=== PATIENT | male | born 1955 | race Two or more races ===

== ENCOUNTER 2022-09-08 08:36 | Inpatient (IN) | payer MEDICARE ==
[~2022-09-08] VITALS: Ht 175.3 cm; Wt 88.0 kg
[2022-09-08] MEDS ORDERED: normal saline 1000ML IV soln IVB ONE (09:15)
[2022-09-08] MEDS ORDERED: iohexol 300mg/ml 100ml inj. ONE (09:20)
[2022-09-08 09:45] LABS: BASOPHILS % (AUTO) 0.5 % (0-1); EOSINOPHILS # (AUTO) 0.1 X10'3 (0-0.9); EOSINOPHILS % (AUTO) 1.8 % (0-6); HEMOGLOBIN 11.7 g/dl (14.0-17.9); LYMPHOCYTES # (AUTO) 1.4 X10'3 (1.1-4.8); LYMPHOCYTES % (AUTO) 17.3 % (21-51); MEAN CORPUSCULAR HEMOGLOBIN 31.1 PG (27.0-31.0); MEAN CORPUSCULAR HGB CONC 33.3 g/dL (33.0-36.5); MEAN CORPUSCULAR VOLUME 93.4 FL (78-98); MEAN PLATELET VOLUME 8.2 FL (7.4-10.4); MONOCYTES # (AUTO) 0.4 X10'3 (0-0.9); MONOCYTES % (AUTO) 4.9 % (2-12); NEUTROPHILS # (AUTO) 6.1 X10'3 (1.8-7.7); NEUTROPHILS % (AUTO) 75.5 % (42-75); PLATELET COUNT 257 X10'3 (140-440); RED BLOOD COUNT 3.75 X10'6 (4.70-6.10); RED CELL DISTRIBUTION WIDTH 13.1 % (11.5-14.5); WHITE BLOOD COUNT 8.1 X10'3 (4.5-11.0)
[2022-09-08 09:46] LABS: ALANINE AMINOTRANSFERASE 26 U/L (12-78); ALBUMIN 3.6 G/DL (3.4-5.0); ALBUMIN/GLOBULIN RATIO 1.2 (1.1-1.5); ANION GAP 12 (8-16); ASPARTATE AMINO TRANSFERASE 21 U/L (10-37); BILIRUBIN,TOTAL 0.4 MG/DL (0.1-1.0); BLOOD UREA NITROGEN 24 MG/DL (7-18); BUN/CREATININE RATIO 23.8 (10.0-20.0); CALCIUM 8.6 MG/DL (8.5-10.1); CHLORIDE 102 MMOL/L (99-107); CREATININE 1.01 MG/DL (0.60-1.10); GLUCOSE 205 MG/DL (70-104); SODIUM 137 MMOL/L (135-145); TOTAL CARBON DIOXIDE 22.8 MMOL/L (24-32); TOTAL PROTEIN 6.7 G/DL (6.4-8.2); eGFR 73 ML/MIN
[2022-09-08 09:47] LABS: ALKALINE PHOSPHATASE 53 IU/L (46-116); LIPASE 138 U/L (73-393)
[2022-09-08 11:47] LABS: COLOR,URINE YELLOW (Yellow); GLUCOSE, URINE NEGATIVE (Neg); KETONES,URINE 15 mg/dl (Neg); LEUKOCYTE ESTERASE ,URINE SMALL (Neg); NITRITES, URINE POSITIVE (Neg); OCCULT BLOOD,URINE NEGATIVE (Neg); PROTEIN,URINE NEGATIVE (Neg); UROBILINOGEN,URINE 0.2 E.U/dL (0.2-1.0)
[2022-09-08 11:49] LABS: CLARITY,URINE SLIGHTLY CLOUDY (Clear); UA COLLECTION TYPE CLN CATCH MIDSTREAM
[2022-09-08 12:05] LABS: MUCUS STRANDS FEW /LPF (Neg); SQUAMOUS EPITHELIAL CELL,UR NONE SEEN /LPF (FEW)
[2022-09-08 12:06] LABS: BACTERIA,URINE 2+ /HPF (Neg); RBC,URINE NONE SEEN /HPF (0-2)
[2022-09-08] MEDS ORDERED: CefTRIAXone 2gm/D5W 50ml BAG 50 ML IV ONE (12:15)
--- NOTE | 2022-09-08 12:48 | NUR ---
PT HAS CONCERNS ABOUT IV ABX USE - HOSPITALIST AT BEDSIDE FOR ADMISSION EXAM - ADVISED HER TO PLEASE LET ME KNOW ABOUT ABX AFTER SHE TALKS WITH PATIENT.
[2022-09-08] MEDS ORDERED: potassium Cl 40MEQ/1/2NS 520ml 520 ML IV PRN (13:10)
[2022-09-08] MEDS ORDERED: PEG 3350/Na sulf,bicarb,Cl/KCl oral sol 4 liter bottle PO ONE (13:10)
[2022-09-08] MEDS ORDERED: magnesium 2GM in 50ml NS 50 ML IV PRN (13:10)
[2022-09-08] MEDS ORDERED: magnesium 4gm in 100ml NS 100 ML IV PRN (13:10)
[2022-09-08] MEDS ORDERED: ondansetron/PF 4mg/2ml inj IV PRN (13:10)
[2022-09-08] MEDS ORDERED: potassium Cl 20 mEq SR tablet PO PRN ×2 (13:10)
[2022-09-08] MEDS ORDERED: acetaminophen 325mg tablet PO PRN ×2 (13:10)
[2022-09-08] MEDS ORDERED: magnesium Cl slow-release 64mg tablet PO PRN (13:10)
[2022-09-08] MEDS ORDERED: LORazepam 1 MG tablet PO PRN (13:15)
[2022-09-08] MEDS ORDERED: LORazepam 2 mg/ml vial IV PRN (13:15)
[2022-09-08] MEDS: normal saline 1000ml 1,000 ML IV SCH (13:41)
[2022-09-08] MEDS ORDERED: NO HOME MEDS (14:01)
[2022-09-08 14:18] LABS: APTT 27 SECONDS (22-32)
--- NOTE | 2022-09-08 15:50 | NUR ---
Patient in room ED 13. I have received report from Carolynn and had the opportunity to ask questions and assume patient care.
--- NOTE | 2022-09-08 15:59 | NUR ---
Paged Dr. Ramsay. Heydi STEEN RE: Luis Alfredo Souaz. Can we get a clear liquid diet for this patient? GI lab said the colonoscopy is scheduled for tomorrow at 2 pm.
[2022-09-08] MEDS: pantoprazole 40MG/NS 100ML BAG 100 ML IV SCH ×2 (16:00→19:52)
--- NOTE | 2022-09-08 16:02 | NUR ---
Late enty: Patient had refused the Rocephin and Protonix drip ordered upon discussing with him needing antibiotic for UTI and protonix to protect his stomach since he has been having bloody stool
[2022-09-08 16:30] VITALS: BP 142/79
--- NOTE | 2022-09-08 18:31 | NUR ---
Problems reprioritized. Patient report given, questions answered & plan of care reviewed with Gloria Awad
[2022-09-08] MEDS: thiamine 100mg/ml 2ml inj. IV SCH (19:53)
--- NOTE | 2022-09-08 20:09 | NUR ---
notified MD that patient refusing Protoix and Thiamine. Agrees to take golytely prior to colonoscopy tomorrow.
[2022-09-08 22:00] VITALS: BP 135/68
[2022-09-09] VITALS (11 sets, daily range): BP systolic 92–141; BP diastolic 47–73
[2022-09-09] MEDS: pantoprazole 40MG/NS 100ML BAG 100 ML IV SCH ×3 (00:21→08:47)
[2022-09-09] MEDS: normal saline 1000ml 1,000 ML IV SCH ×4 (00:21→20:33)
--- NOTE | 2022-09-09 05:07 | NUR ---
patient informed me that he has had 1/2 of the golytely and states that his BM is clear, although looking in the toilet, it is dark red and not clear. Educated patient to try to finish the golytely, but he is convinced that there is no stool coming out.
--- NOTE | 2022-09-09 05:43 | NUR ---
patient requesting to increase rate of IVF. I told him that I cannot give him more than what is ordered. He states that he feels he has lost a lot of blood and needs more fluids. Educated him that the boat detailer is on the floor and will be drawing his blood to see if he may need a blood transfusion and also to not walk to the bathroom by himself if he is feeling lightheaded. Spoke to boat detailer to have him draw patient next in order to help the patient to feel as if he is not being ignored.
[2022-09-09 06:32] LABS: BASOPHILS % (AUTO) 0.4 % (0-1); EOSINOPHILS # (AUTO) 0.1 X10'3 (0-0.9); EOSINOPHILS % (AUTO) 1.8 % (0-6); HEMATOCRIT 24.3 % (42.0-52.0); HEMOGLOBIN 8.3 g/dl (14.0-17.9); LYMPHOCYTES # (AUTO) 1.1 X10'3 (1.1-4.8); LYMPHOCYTES % (AUTO) 18.6 % (21-51); MEAN CORPUSCULAR HEMOGLOBIN 31.9 PG (27.0-31.0); MEAN CORPUSCULAR VOLUME 93.9 FL (78-98); MONOCYTES # (AUTO) 0.4 X10'3 (0-0.9); MONOCYTES % (AUTO) 6.2 % (2-12); NEUTROPHILS # (AUTO) 4.5 X10'3 (1.8-7.7); PLATELET COUNT 187 X10'3 (140-440); RED BLOOD COUNT 2.59 X10'6 (4.70-6.10); RED CELL DISTRIBUTION WIDTH 13.1 % (11.5-14.5); WHITE BLOOD COUNT 6.1 X10'3 (4.5-11.0)
--- NOTE | 2022-09-09 06:34 | NUR ---
Problems reprioritized. Patient report given, questions answered & plan of care reviewed with CELSA Granger.
--- NOTE | 2022-09-09 06:37 | NUR ---
Patient in room ORTHO 4018. I have received report from Gloria Awad and had the opportunity to ask questions and assume patient care.
[2022-09-09 06:56] LABS: ALANINE AMINOTRANSFERASE 20 U/L (12-78); ALBUMIN 2.9 G/DL (3.4-5.0); ALBUMIN/GLOBULIN RATIO 1.2 (1.1-1.5); ALKALINE PHOSPHATASE 42 IU/L (46-116); ANION GAP 9 (8-16); ASPARTATE AMINO TRANSFERASE 21 U/L (10-37); BILIRUBIN,TOTAL 0.5 MG/DL (0.1-1.0); BLOOD UREA NITROGEN 15 MG/DL (7-18); BUN/CREATININE RATIO 17.4 (10.0-20.0); CALCIUM 8.2 MG/DL (8.5-10.1); CHLORIDE 107 MMOL/L (99-107); CREATININE 0.86 MG/DL (0.60-1.10); GLUCOSE 131 MG/DL (70-104); LIPASE 106 U/L (73-393); POTASSIUM 4.1 MMOL/L (3.5-5.1); SODIUM 140 MMOL/L (135-145); TOTAL CARBON DIOXIDE 24.1 MMOL/L (24-32); TOTAL PROTEIN 5.4 G/DL (6.4-8.2); eGFR 88 ML/MIN
--- NOTE | 2022-09-09 07:15 | NUR ---
Patient is refusing protonix, he will only accept an increase in NS. Advised patient this is an order and cannot just be increased per patient request. Patient is still having blood in the toilet but no stool. Patient stated he doesn't want to drink more of the bowel prep since there isn't any more stool. Reiterated to the patient that the bowel contents need to be clear for the procedure. He still declines. Patient stated he now feels more weakness and dizziness. Provided BSC, printed education material for the protonix and paged the hospitalist.
--- NOTE | 2022-09-09 07:26 | NUR ---
GI lab called regarding prep and how patients stool is looking. I went in room, colonoscopy prep is about gone, and patient stool in toilet is maxwell red with flakes in it. He stated he was dizzy and I offered to get a commode, he stated "no I will be fine", commode placed in room.
--- NOTE | 2022-09-09 07:34 | NUR ---
Re: Libby, 4018, pt refusing protonix, blood in toilet, no stool, only wants increased NS, dizziness present, provided protonix edu, just castro Granger
[2022-09-09] MEDS: folic acid 1mg/0.2ml inj IV SCH (08:00)
[2022-09-09] MEDS: thiamine 100mg/ml 2ml inj. IV SCH ×3 (08:00→20:32)
[2022-09-09] MEDS ORDERED: LIDOcaine Viscous 15ml cup ONE (08:55)
[2022-09-09] MEDS ORDERED: fentaNYL/PF 50MCG/1 ML 2ML syringe ONE (08:55)
[2022-09-09] MEDS ORDERED: MIDAZolam 1 MG/ML 5ML VIAL ONE (08:55)
--- NOTE | 2022-09-09 09:07 | NUR ---
Ada STEEN from GI at 0800 inquiring about patient golytely status, told her he was done. She then called back at 0830 to inform me they will be getting the patient earlier than 1400. I then told her I had just flushed a maxwell blood with clots stool from the commode, and told her it may be in there best interest to do the colonoscopy sooner than later. Also spoke with the son and informed him on what is the plan. I had a lengthy talk with patient regarding protonix gtt and the benefits, he then agreed to take it.
--- NOTE | 2022-09-09 09:19 | NUR ---
Juliana STEEN here to waste picker patient, patient would like code status changed. Addendum: 09/09/22 at 0940 by Hannah Cotto RN Dr. Ramsay came up and spoke with patient regarding Code status.
--- NOTE | 2022-09-09 09:21 | NUR ---
PAGER ID: [phone] MESSAGE: [phone] Libby Altman Can you call me? Hannah. We need a code status change and would really like to get a blood consent for the patient. [id number] THANK YOU
--- NOTE | 2022-09-09 11:37 | NUR ---
Re: Libby in 4017, pt is back from GI, report copy in agustin Granger
--- NOTE | 2022-09-09 11:53 | NUR ---
RE: 4404 Libby, patient asking to eat, please advise Thank you Bárbara
--- NOTE | 2022-09-09 13:25 | NUR ---
Patient refused to continue to protonix drip.
[2022-09-09 14:48] LABS: BASOPHILS % (AUTO) 0.1 % (0-1); EOSINOPHILS % (AUTO) 0 % (0-6); LYMPHOCYTES # (AUTO) 0.7 X10'3 (1.1-4.8); LYMPHOCYTES % (AUTO) 6.3 % (21-51); MEAN CORPUSCULAR HEMOGLOBIN 31.2 PG (27.0-31.0); MEAN CORPUSCULAR HGB CONC 33.6 g/dL (33.0-36.5); MEAN PLATELET VOLUME 7.7 FL (7.4-10.4); MONOCYTES # (AUTO) 0.4 X10'3 (0-0.9); MONOCYTES % (AUTO) 3.7 % (2-12); NEUTROPHILS % (AUTO) 89.9 % (42-75); PLATELET COUNT 183 X10'3 (140-440); RED BLOOD COUNT 2.11 X10'6 (4.70-6.10); RED CELL DISTRIBUTION WIDTH 12.8 % (11.5-14.5); WHITE BLOOD COUNT 11.1 X10'3 (4.5-11.0)
[2022-09-09 14:57] LABS: HEMATOCRIT 19.6 % (42.0-52.0); HEMOGLOBIN 6.6 g/dl (14.0-17.9)
--- NOTE | 2022-09-09 15:06 | NUR ---
RE: 4018 Libby, H&H 6.6 and 19.6, pt does not want transfusion at this time, still refusing protonix, he's asking to increase rate of NS Bárbara
--- NOTE | 2022-09-09 15:43 | NUR ---
Patient did decline the blood transfusion in the presence of this conventional underwriter and the hospitalist. The patient did write down his reasons for declining on a sheet of paper which was placed in his chart. Patient requested to have a friend donate blood (same blood type) and provide that should he opt to have a transfusion. Hospitalist made aware.
[2022-09-09] MEDS ORDERED: polyethylene glycol 3350 17gm powd pack PO PRN (17:05)
--- NOTE | 2022-09-09 18:19 | NUR ---
Problems reprioritized. Patient report given, questions answered & plan of care reviewed with Gloria Awda
[2022-09-09] MEDS: pantoprazole 40mg Tablet.DR PO SCH (20:00)
[2022-09-09] MEDS: ferrous sulfate 325mg tablet PO SCH (20:26)
[2022-09-10 02:00] VITALS: BP 111/45
[2022-09-10] MEDS: normal saline 1000ml 1,000 ML IV SCH ×2 (05:19→22:23)
[2022-09-10 06:00] VITALS: BP 115/58
[2022-09-10 06:40] LABS: BASOPHILS % (AUTO) 0.2 % (0-1); EOSINOPHILS % (AUTO) 0.4 % (0-6); LYMPHOCYTES # (AUTO) 1.7 X10'3 (1.1-4.8); LYMPHOCYTES % (AUTO) 17.1 % (21-51); MEAN CORPUSCULAR HEMOGLOBIN 32.4 PG (27.0-31.0); MEAN CORPUSCULAR HGB CONC 34.6 g/dL (33.0-36.5); MEAN CORPUSCULAR VOLUME 93.8 FL (78-98); MEAN PLATELET VOLUME 8.4 FL (7.4-10.4); MONOCYTES # (AUTO) 0.8 X10'3 (0-0.9); MONOCYTES % (AUTO) 8.4 % (2-12); NEUTROPHILS # (AUTO) 7.4 X10'3 (1.8-7.7); NEUTROPHILS % (AUTO) 73.9 % (42-75); PLATELET COUNT 162 X10'3 (140-440); RED BLOOD COUNT 1.71 X10'6 (4.70-6.10)
[2022-09-10 06:41] LABS: ALANINE AMINOTRANSFERASE 17 U/L (12-78); ALBUMIN 2.4 G/DL (3.4-5.0); ALBUMIN/GLOBULIN RATIO 1.1 (1.1-1.5); ALKALINE PHOSPHATASE 35 IU/L (46-116); ANION GAP 6 (8-16); ASPARTATE AMINO TRANSFERASE 21 U/L (10-37); BILIRUBIN,TOTAL 0.2 MG/DL (0.1-1.0); BLOOD UREA NITROGEN 12 MG/DL (7-18); CALCIUM 8.1 MG/DL (8.5-10.1); CHLORIDE 110 MMOL/L (99-107); CREATININE 0.86 MG/DL (0.60-1.10); GLUCOSE 121 MG/DL (70-104); POTASSIUM 4.5 MMOL/L (3.5-5.1); SODIUM 142 MMOL/L (135-145); TOTAL CARBON DIOXIDE 25.7 MMOL/L (24-32); TOTAL PROTEIN 4.5 G/DL (6.4-8.2); eGFR 88 ML/MIN
[2022-09-10 06:55] LABS: HEMOGLOBIN 5.5 g/dl (14.0-17.9)
--- NOTE | 2022-09-10 07:07 | NUR ---
PAGER ID: [phone] MESSAGE: [phone] Arria form needs filled out for [employer]ant jackie. H&H .09/25 5224 BARBARA
--- NOTE | 2022-09-10 07:29 | NUR ---
PAGER ID: [phone] MESSAGE: [phone] Rodriguezia STAT need signature on form for [employer] for Blood. Needs faxed yesterday. Critical H&H 5.09/25
[2022-09-10] MEDS: pantoprazole 40mg Tablet.DR PO SCH ×2 (08:00→22:07)
[2022-09-10] MEDS: thiamine 100mg/ml 2ml inj. IV SCH ×3 (08:00→22:07)
[2022-09-10] MEDS: folic acid 1mg/0.2ml inj IV SCH (08:00)
--- NOTE | 2022-09-10 08:03 | NUR ---
Call from Dr Perla, she will come and see patient and sign form for [employer] special collection request.
[2022-09-10 10:00] VITALS: BP 116/46
[2022-09-10 12:25] LABS: MEAN CORPUSCULAR HEMOGLOBIN 31.7 PG (27.0-31.0); MEAN CORPUSCULAR HGB CONC 33.9 g/dL (33.0-36.5); MEAN CORPUSCULAR VOLUME 93.4 FL (78-98); MEAN PLATELET VOLUME 7.7 FL (7.4-10.4); PLATELET COUNT 182 X10'3 (140-440); RED CELL DISTRIBUTION WIDTH 12.9 % (11.5-14.5); WHITE BLOOD COUNT 9.4 X10'3 (4.5-11.0)
[2022-09-10 12:27] LABS: HEMATOCRIT 16.8 % (42.0-52.0); HEMOGLOBIN 5.7 g/dl (14.0-17.9)
[2022-09-10 14:00] VITALS: BP 112/49
[2022-09-10 15:24] LABS: BASOPHILS % (AUTO) 0.3 % (0-1); EOSINOPHILS # (AUTO) 0.1 X10'3 (0-0.9); EOSINOPHILS % (AUTO) 1.3 % (0-6); LYMPHOCYTES # (AUTO) 1.7 X10'3 (1.1-4.8); LYMPHOCYTES % (AUTO) 22.4 % (21-51); MEAN CORPUSCULAR HEMOGLOBIN 31.6 PG (27.0-31.0); MEAN CORPUSCULAR HGB CONC 33.7 g/dL (33.0-36.5); MEAN CORPUSCULAR VOLUME 93.7 FL (78-98); MEAN PLATELET VOLUME 7.8 FL (7.4-10.4); MONOCYTES # (AUTO) 0.7 X10'3 (0-0.9); MONOCYTES % (AUTO) 8.4 % (2-12); NEUTROPHILS # (AUTO) 5.2 X10'3 (1.8-7.7); NEUTROPHILS % (AUTO) 67.6 % (42-75); PLATELET COUNT 164 X10'3 (140-440); RED BLOOD COUNT 1.68 X10'6 (4.70-6.10); RED CELL DISTRIBUTION WIDTH 13.2 % (11.5-14.5); WHITE BLOOD COUNT 7.8 X10'3 (4.5-11.0)
[2022-09-10 15:26] LABS: HEMATOCRIT 15.8 % (42.0-52.0); HEMOGLOBIN 5.3 g/dl (14.0-17.9)
[2022-09-10] MEDS: ferrous sulfate 325mg tablet PO SCH ×2 (15:48→22:07)
--- NOTE | 2022-09-10 18:27 | NUR ---
Multiple discussions throughout this shift. Patient is still refusing blood transfusion. He has friends willing to donate and they have been in contact with [facility]. Patient has stated understanding that if his H&H continues to drop that he would need to reconsider accepting a transfusion. Dr Perla also spoke with patient this am.
[2022-09-10 18:30] VITALS: BP 124/59
[2022-09-10 22:00] VITALS: BP 116/57
[2022-09-11 06:27] LABS: BASOPHILS % (AUTO) 0.3 % (0-1); EOSINOPHILS # (AUTO) 0.1 X10'3 (0-0.9); EOSINOPHILS % (AUTO) 1.8 % (0-6); LYMPHOCYTES # (AUTO) 1.7 X10'3 (1.1-4.8); LYMPHOCYTES % (AUTO) 26.2 % (21-51); MEAN CORPUSCULAR HEMOGLOBIN 31.4 PG (27.0-31.0); MEAN CORPUSCULAR HGB CONC 33.3 g/dL (33.0-36.5); MEAN CORPUSCULAR VOLUME 94.5 FL (78-98); MEAN PLATELET VOLUME 8.3 FL (7.4-10.4); MONOCYTES # (AUTO) 0.6 X10'3 (0-0.9); MONOCYTES % (AUTO) 9.3 % (2-12); NEUTROPHILS # (AUTO) 4.1 X10'3 (1.8-7.7); NEUTROPHILS % (AUTO) 62.4 % (42-75); PLATELET COUNT 161 X10'3 (140-440); RED BLOOD COUNT 1.58 X10'6 (4.70-6.10); RED CELL DISTRIBUTION WIDTH 13.5 % (11.5-14.5); WHITE BLOOD COUNT 6.6 X10'3 (4.5-11.0)
[2022-09-11 06:33] LABS: HEMATOCRIT 14.9 % (42.0-52.0)
[2022-09-11 06:38] LABS: ALANINE AMINOTRANSFERASE 21 U/L (12-78); ALBUMIN 2.5 G/DL (3.4-5.0); ALBUMIN/GLOBULIN RATIO 1.1 (1.1-1.5); ALKALINE PHOSPHATASE 35 IU/L (46-116); ANION GAP 7 (8-16); ASPARTATE AMINO TRANSFERASE 33 U/L (10-37); BILIRUBIN,TOTAL 0.2 MG/DL (0.1-1.0); BLOOD UREA NITROGEN 9 MG/DL (7-18); BUN/CREATININE RATIO 9.7 (10.0-20.0); CALCIUM 7.9 MG/DL (8.5-10.1); CHLORIDE 109 MMOL/L (99-107); CREATININE 0.93 MG/DL (0.60-1.10); GLUCOSE 114 MG/DL (70-104); POTASSIUM 4.2 MMOL/L (3.5-5.1); SODIUM 142 MMOL/L (135-145); TOTAL CARBON DIOXIDE 26.5 MMOL/L (24-32); TOTAL PROTEIN 4.7 G/DL (6.4-8.2); eGFR 81 ML/MIN
[2022-09-11] MEDS: pantoprazole 40mg Tablet.DR PO SCH ×2 (08:00→18:46)
[2022-09-11] MEDS: normal saline 1000ml 1,000 ML IV SCH ×2 (08:23→18:23)
[2022-09-11] MEDS: thiamine 100mg/ml 2ml inj. IV SCH (09:04)
[2022-09-11] MEDS: ferrous sulfate 325mg tablet PO SCH ×2 (09:04→18:57)
--- NOTE | 2022-09-11 10:10 | NUR ---
PAGER ID: [phone] MESSAGE: [id number] H&H dropped slightly. Pt asking about iron infusion and epoetin. BARBARA [id number]
[2022-09-11 13:15] VITALS: BP 113/55
[2022-09-11 13:30] VITALS: BP 122/60
[2022-09-11 14:30] VITALS: BP 129/62
[2022-09-11 15:30] VITALS: BP 135/63
[2022-09-11 16:30] VITALS: BP 129/68
[2022-09-11 18:00] VITALS: BP 129/62
--- NOTE | 2022-09-11 18:18 | NUR ---
Pt refusing protonix and vitals. Pt states he would "like to be left alone the rest of the night until AM lab draw. States he will ring if anything is needed."
[2022-09-11] MEDS: thiamine 100mg tablet PO SCH (18:57)
[2022-09-12] VITALS (9 sets, daily range): BP systolic 133–151; BP diastolic 70–77
[2022-09-12] MEDS: normal saline 1000ml 1,000 ML IV SCH (04:23)
[2022-09-12 06:36] LABS: ALANINE AMINOTRANSFERASE 25 U/L (12-78); ALBUMIN 2.6 G/DL (3.4-5.0); ALBUMIN/GLOBULIN RATIO 1.1 (1.1-1.5); ALKALINE PHOSPHATASE 38 IU/L (46-116); ANION GAP 5 (8-16); ASPARTATE AMINO TRANSFERASE 34 U/L (10-37); BILIRUBIN,TOTAL 0.2 MG/DL (0.1-1.0); BLOOD UREA NITROGEN 9 MG/DL (7-18); CALCIUM 8.6 MG/DL (8.5-10.1); CHLORIDE 108 MMOL/L (99-107); GLUCOSE 128 MG/DL (70-104); POTASSIUM 4.6 MMOL/L (3.5-5.1); SODIUM 142 MMOL/L (135-145); TOTAL CARBON DIOXIDE 29.4 MMOL/L (24-32); eGFR 84 ML/MIN
[2022-09-12 08:21] LABS: BASOPHILS % (AUTO) 0.4 % (0-1); EOSINOPHILS # (AUTO) 0.2 X10'3 (0-0.9); EOSINOPHILS % (AUTO) 2.2 % (0-6); LYMPHOCYTES # (AUTO) 1.6 X10'3 (1.1-4.8); LYMPHOCYTES % (AUTO) 21.8 % (21-51); MEAN CORPUSCULAR HEMOGLOBIN 31.9 PG (27.0-31.0); MEAN CORPUSCULAR HGB CONC 34.1 g/dL (33.0-36.5); MEAN CORPUSCULAR VOLUME 93.6 FL (78-98); MEAN PLATELET VOLUME 8.5 FL (7.4-10.4); MONOCYTES # (AUTO) 0.6 X10'3 (0-0.9); MONOCYTES % (AUTO) 8.7 % (2-12); NEUTROPHILS # (AUTO) 4.8 X10'3 (1.8-7.7); NEUTROPHILS % (AUTO) 66.9 % (42-75); PLATELET COUNT 195 X10'3 (140-440); RED BLOOD COUNT 1.97 X10'6 (4.70-6.10); WHITE BLOOD COUNT 7.2 X10'3 (4.5-11.0)
[2022-09-12 08:29] LABS: HEMATOCRIT 18.5 % (42.0-52.0); HEMOGLOBIN 6.3 g/dl (14.0-17.9)
[2022-09-12] MEDS: folic acid 1mg tablet PO SCH (09:12)
[2022-09-12] MEDS: thiamine 100mg tablet PO SCH ×3 (09:12→20:00)
[2022-09-12] MEDS: ferrous sulfate 325mg tablet PO SCH ×2 (09:12→20:13)
[2022-09-12] MEDS: pantoprazole 40mg Tablet.DR PO SCH ×3 (09:13→20:13)
[2022-09-12 12:35] LABS: ABSOLUTE RETICS # 89.7 X10'3 uL (32.5-133.0); RETICULOCYTE % (AUTO) 4.5 % (0.5-2.3)
--- NOTE | 2022-09-12 18:00 | NUR ---
Patient in room ORTHO 4014. I have received report from Fide STEEN and had the opportunity to ask questions and assume patient care.
[2022-09-12] MEDS ORDERED: PANT40SU2 PO (18:19)
[2022-09-12] MEDS ORDERED: FER325T PO (18:19)
[2022-09-12 22:25] LABS: HEMATOCRIT 24.3 % (42.0-52.0); HEMOGLOBIN 8.1 g/dl (14.0-17.9); MEAN CORPUSCULAR HEMOGLOBIN 30.3 PG (27.0-31.0); MEAN CORPUSCULAR HGB CONC 33.5 g/dL (33.0-36.5); MEAN CORPUSCULAR VOLUME 90.6 FL (78-98); MEAN PLATELET VOLUME 7.4 FL (7.4-10.4); PLATELET COUNT 218 X10'3 (140-440); RED BLOOD COUNT 2.69 X10'6 (4.70-6.10); RED CELL DISTRIBUTION WIDTH 14.8 % (11.5-14.5); WHITE BLOOD COUNT 8.5 X10'3 (4.5-11.0)
[2022-09-13] MEDS: normal saline 1000ml 1,000 ML IV SCH ×2 (00:23→10:23)
--- NOTE | 2022-09-13 02:16 | NUR ---
Pt is concerned about discharge this evening being unsafe. This was conveyed to the hospitalist and he agrees that discharge will be put on hold until the morning of 09/13. Pt continues to refuse protonix and vital signs during this shift stating " He wants to be left alone to sleep" Pt is also refusing IV fluids stating " He has already had three units of blood, He is overloaded" RN attempted to educate the pt by explaining reasons for the iv fluids. Pt continued to refuse.
--- NOTE | 2022-09-13 05:41 | NUR ---
Problems reprioritized. Patient report given, questions answered & plan of care reviewed with Holly STEEN.
--- NOTE | 2022-09-13 06:49 | NUR ---
Patient in room ORTHO 4014. I have received report from CELSA Varghese and had the opportunity to ask questions and assume patient care.
[2022-09-13] MEDS: ferrous sulfate 325mg tablet PO SCH (07:18)
[2022-09-13] MEDS: thiamine 100mg tablet PO SCH (07:18)
[2022-09-13] MEDS: folic acid 1mg tablet PO SCH (07:19)
[2022-09-13] MEDS: pantoprazole 40mg Tablet.DR PO SCH (07:20)
[2022-09-13 07:41] LABS: ALANINE AMINOTRANSFERASE 36 U/L (12-78); ALBUMIN 3.2 G/DL (3.4-5.0); ALBUMIN/GLOBULIN RATIO 1.1 (1.1-1.5); ALKALINE PHOSPHATASE 50 IU/L (46-116); ANION GAP 9 (8-16); ASPARTATE AMINO TRANSFERASE 36 U/L (10-37); BILIRUBIN,TOTAL 0.6 MG/DL (0.1-1.0); BLOOD UREA NITROGEN 10 MG/DL (7-18); BUN/CREATININE RATIO 9.4 (10.0-20.0); CALCIUM 9.2 MG/DL (8.5-10.1); CHLORIDE 104 MMOL/L (99-107); CREATININE 1.06 MG/DL (0.60-1.10); GLUCOSE 125 MG/DL (70-104); POTASSIUM 3.6 MMOL/L (3.5-5.1); SODIUM 141 MMOL/L (135-145); TOTAL CARBON DIOXIDE 27.8 MMOL/L (24-32); TOTAL PROTEIN 6.2 G/DL (6.4-8.2); eGFR 69 ML/MIN
[2022-09-13 08:00] LABS: BASOPHILS % (AUTO) 0.4 % (0-1); EOSINOPHILS # (AUTO) 0.2 X10'3 (0-0.9); EOSINOPHILS % (AUTO) 2.4 % (0-6); HEMATOCRIT 27.4 % (42.0-52.0); HEMOGLOBIN 9.2 g/dl (14.0-17.9); LYMPHOCYTES # (AUTO) 1.9 X10'3 (1.1-4.8); LYMPHOCYTES % (AUTO) 21.2 % (21-51); MEAN CORPUSCULAR HGB CONC 33.7 g/dL (33.0-36.5); MEAN CORPUSCULAR VOLUME 91.9 FL (78-98); MEAN PLATELET VOLUME 8.1 FL (7.4-10.4); MONOCYTES # (AUTO) 0.9 X10'3 (0-0.9); PLATELET COUNT 256 X10'3 (140-440); RED BLOOD COUNT 2.99 X10'6 (4.70-6.10)
[2022-09-13 10:00] VITALS: BP 122/71
--- NOTE | 2022-09-13 12:35 | NUR ---
Patient discharge home with family. Discharge information was provided and review with patient with family present. Patient verbalize understanding and patient discharge with home with all belongings.
--- NOTE | 2022-09-13 12:48 | NUR ---
HEMATOLOGY TECHNICIAN documentation: I have reviewed and agree with all interventions, assessments performed and documented by Holly Castellon LVN.
== END 2022-09-13 12:40 | disposition home or self-care (01) | DRG 378 ==
LOC: ER 08:37 → ED HOLD 13:14 → EDBEDREQ 14:57 → ORTHO 4S 16:20
PROVIDERS: ADMIT Internal Medicine; ATTEND Internal Medicine
PROC: BW211ZZ Computerized Tomography (CT Scan) of Abdomen and Pelvis using Low Osmolar Contrast (ICD-10-PCS; 2022-09-08)
PROC: 0DJ08ZZ Inspection of Upper Intestinal Tract, Via Natural or Artificial Opening Endoscopic (ICD-10-PCS; 2022-09-08)
PROC: 0DJD8ZZ Inspection of Lower Intestinal Tract, Via Natural or Artificial Opening Endoscopic (ICD-10-PCS; 2022-09-08)
PROC: 30233N1 Transfusion of Nonautologous Red Blood Cells into Peripheral Vein, Percutaneous Approach (ICD-10-PCS; principal; 2022-09-11)
DX: K57.31 Diverticulosis of large intestine without perforation or abscess with bleeding (principal); D62 Acute posthemorrhagic anemia; E27.9 Disorder of adrenal gland, unspecified; Z66 Do not resuscitate; D64.9 Anemia, unspecified; K44.9 Diaphragmatic hernia without obstruction or gangrene; N40.0 Benign prostatic hyperplasia without lower urinary tract symptoms; Z87.442 Personal history of urinary calculi
CPT/HCPCS: 36415; 36430; 43235; 45378; 74177; 80053; 81001; 83605; 83690; 85025; 85027; 85610; 85730; 86885; 86900; 86901; 86920; 87040; 87081; 87088; 96360; 99152; 99153; 99285; A4615; A4620; C9113; G0378; J2250; J3010; J3411; J3490; J7030; J7040; P9016; Q9967